=== PATIENT | female | born 1975 | race Caucasian/White ===

== ENCOUNTER 2016-08-18 21:54 | Emergency (ER) | payer BC ==
[~2016-08-18] VITALS: Ht 165.1 cm; Wt 87.0 kg
[~2016-08-18 21:54] MED LIST: FAMO-18 PO
[2016-08-18 21:59] VITALS: Ht 165.1 cm; Wt 87.0 kg
[2016-08-18] MEDS ORDERED: ALBUTEROL 0.083% (NEB) 2.5 MG/3 ML AMP HHN STA (22:15)
[2016-08-18] MEDS ORDERED: IPRATROPIUM (NEB) 0.5 MG/2.5 ML AMP HHN ONE (22:30)
--- NOTE | 2016-08-18 22:53 | RADRPT ---
PROCEDURE: XR Chest. CLINICAL INDICATION: Pneumonia. TECHNIQUE: Single frontal view of the chest. COMPARISON: 04/09/2015. FINDINGS: The cardiomediastinal silhouette is within normal limits. The lungs are clear. No signs of pleural f luid or pneumothorax are seen. The osseous structures and soft tissues are unremarkable. IMPRESSION: Mild failure. RPTAT: [facility] Physician Kirk Date Time Electronically viewed and signed by Physician Kirk on 08/18/2016 22:52 RS/
--- NOTE | 2016-08-19 01:14 | ERD ---
ER Documentation Chief Complaint Date/Time DATE: 08/19/16 TIME: 01:08 Chief Complaint COUGH SOB CWP HPI Pleasant 41-year-old female presenting to emergency department today with cough , fever, back pain, and left lateral chest pain. Patient reports that she was seen by her primary care physician and treated for a bronchial infection approximately 3 weeks ago, patient was prescribed azithromycin she took full course of medication as prescribed. States that symptoms started to come back 10 days ago. Patient denies any hemoptysis, shortness of breath, or palpitations. ROS All systems reviewed and are negative except as per history of present illness. Medications Home Meds Active Scripts Famotidine* (Pepcid*) 20 Mg Tablet, 20 MG PO BID Y for reflux symptoms for 30 Days, TAB Prov:MEGHANA POWELL MD 04/10/15 Allergies Allergies: Coded Allergies: Penicillins (Verified Allergy, Unknown, WAS TOLD BY PARENTS HAS NEVER TAKEN PENICIILIN THAT SHE KNOW, 04/09/15) PMhx/Soc History of Surgery: No Anesthesia Reaction: No Hx Neurological Disorder: No Hx Respiratory Disorders: No Hx Cardiac Disorders: No Hx Psychiatric Problems: No Hx Miscellaneous Medical Probl: Yes (PALPITATIONS) Hx Alcohol Use: No Hx Substance Use: No Hx Tobacco Use: No Smoking Status: Never smoker Physical Exam Vitals Vital Signs Date Time Temp Pulse Resp B/P Pulse Ox O2 Delivery O2 Flow Rate FiO2 08/18/16 22:45 103 24 97 21 08/18/16 21:59 98.2 107 23 120/66 96 Vitals stable, nursing notes reviewed Physical Exam Const: No acute distress Head: Atraumatic Eyes: Normal Conjunctiva ENT: Normal External Ears, Nose and Mouth. Neck: Full range of motion..~ No meningismus. Resp: Chest rise and fall symmetrically, left lateral posterior lobes rales auscultated, with egophony. Cardio: Regular rate and rhythm, no murmurs Abd: Soft, non tender, non distended. Normal bowel sounds Skin: No petechiae or rashes Back: No midline or flank tenderness Ext: No cyanosis, or edema Neur: Awake and alert Psych: Normal Mood and Affect Results 24 hrs Current Medications Medications (Trade) Dose Ordered Sig/Chantel Route PRN Reason Start Time Stop Time Status Last Admin Dose Admin Albuterol (Proventil 0.083% (Neb)) 2.5 mg ONCE STAT HHN 08/18/16 22:15 08/18/16 22:18 DC 08/18/16 22:48 Ipratropium Leighton (Atrovent 0.02% (Neb)) 0.5 mg ONCE ONCE HHN 08/18/16 22:30 08/18/16 22:31 DC 08/18/16 22:48 Departure Diagnosis: Primary Impression: CAP (community acquired pneumonia) Condition: Good SACHIN DE LEON Aug 19, 2016 01:14
[2016-08-19] MEDS ORDERED: LEVO750T25 PO (01:16)
[2016-08-19] MEDS ORDERED: ALBU18HF INHALATION (01:17)
== END 2016-08-19 01:40 | disposition home or self-care (01) ==
LOC: FTE 21:54
DX: J18.9 Pneumonia, unspecified organism (principal)
CPT/HCPCS: 71020; 94664